=== PATIENT | female | born 1950 | race Caucasian/White ===

== ENCOUNTER 2017-07-02 11:52 | Emergency (ER) | payer OTHER, MEDICARE ==
[2017-07-02 12:13] VITALS: BP 141/88; PULSE 84; RESP 18; TEMP 98.1; O2SAT 94
--- NOTE | 2017-07-02 12:46 | EDPHY ---
H & P Time Seen by Provider: 07/02/17 12:27 HPI/ROS: HPI Trip and fall with facial injuries. 67-year-old female by private vehicle with her . 2 days ago this patient was working in her garden. She was using a garden hose to water her plants. She tripped over the hose and landed on her face. She sustained a contusion and abrasion to her nasal bridge as well as her mid upper lip. Her daughter's is a chief communications officer and looked at the patient and told her that she needed to come to the emergency department to be evaluated. There was no loss of consciousness associated with the event. She has had no significant headache. She denies any nausea or vomiting. No confusion. She complains of facial pain only to her nasal bridge mostly and some to her upper lip. ROS: Constitutional: No fever, no chills. No weakness. Eyes: No discharge. No changes in vision. ENT: No sore throat. No nasal congestion or rhinorrhea. Respiratory: No cough. No shortness of breath. Cardiac: No chest pain, no palpitations. Gastrointestinal: No abdominal pain, no vomiting, no diarrhea. Genitourinary: No hematuria. No dysuria or increased frequency with urination. Musculoskeletal: No back pain. No neck pain. No myalgias or arthralgias. Skin: No rashes. Facial abrasions as noted. Neurological: No headache. No focal weakness or altered sensation. Past medical history: Anxiety, situational depression, asthma, breast cancer. Social history: Nonsmoker. No alcohol. Here with her . Physical Exam: General Appearance: Alert, no distress. This patient is responding to questions appropriately and in full sentences. This patient appears well- hydrated and well-nourished. Head: Normocephalic atraumatic except noted under facial exam. Face: Facial bones are stable on palpation. She has a contusion involving her nasal bridge. The bony aspects of the nasal bridge are stable on palpation without crepitus, deformity or movement. She has a superficial abrasion over the mid nasal bridge. There is no associated erythema, warmth. She has a superficial abrasion over the mid upper lip and without significant swelling or edema. There is no associated erythema or warmth. Eyes: Pupils equal and round and reactive to light, no pallor or injection. No lid erythema or edema. ENT, Mouth: Mucous membranes moist. Dentition is intact. No malocclusion of the jaw. No tongue lacerations or abrasions. Pharynx is clear. The bilateral nasal canals are clear. No septal hematoma. There is no movement of the maxilla with traction on her hard palate. Neurological: Motor sensory function is intact. Cranial nerves are normal. Cerebellar function intact. Gait is normal. Skin: Warm and dry, no rashes. No lacerations, abrasions as noted above. Musculoskeletal: Neck is supple and nontender. The trachea is midline. No midline cervical, thoracic, lumbar or sacral tenderness on palpation. No flank tenderness on palpation. Extremities are symmetrical, full range of motion. All joints in the bilateral upper and bilateral lower extremities range without pain or impingement. No tenderness on palpation of the long bones in the bilateral upper and bilateral lower extremities. Psychiatric: No agitation. No depression. Database: EKG: Imaging: Procedures: Emergency department course: This event happened 2 days ago. No significant findings on neurologic exam. There is nothing on exam to suggest a traumatic brain injury or cervical spine injury. I do not feel that emergent advanced imaging is required at this time. Facial fracture is unlikely. She feels comfortable going home with her . I discussed ibuprofen dosing. I discussed application of bacitracin ointment to her facial abrasions. All of her questions were answered. Return to emergency department precautions and follow-up were thoroughly reviewed with her. She was discharged in good condition. Differential Diagnosis: The differential diagnosis on this patient includes but is not limited to nasal contusion, facial contusion, facial abrasions, mechanical fall. Facial fracture , traumatic brain injury, skull fracture, cervical spine injury, other significant traumatic injury unlikely. This represents a partial list of diagnoses considered. These considerations are based on history, physical exam , past history, reassessment and diagnostic testing. Smoking Status: Never smoked Constitutional: Initial Vital Signs Temperature (C) 36.7 C 07/02/17 12:10 Heart Rate 84 07/02/17 12:10 Respiratory Rate 18 07/02/17 12:10 Blood Pressure 141/88 H 07/02/17 12:10 O2 Sat (%) 94 07/02/17 12:10 O2 Delivery Mode Room Air Allergies/Adverse Reactions: aspirin Allergy (Verified 07/02/17 12:10) body got puffy - "anaphylaxis" Opioids - Morphine Analogues Allergy (Verified 07/02/17 12:10) prochlorperazine edisylate [From Compazine] Allergy (Verified 07/02/17 12:10) muscle contraction in face prochlorperazine maleate [From Compazine] Allergy (Verified 07/02/17 12:10) muscle contraction in face Home Medications: Medication Instructions Recorded Albuterol 07/02/17 Hydroxyzine HCl 07/02/17 Montelukast Sodium 07/02/17 Prednisone 07/02/17 Sertraline HCl 07/02/17 Temazepam 07/02/17 Departure - Departure Disposition: Home, Routine, Self-Care Clinical Impression: Facial contusion, Nasal contusion, Facial abrasion Condition: Good Instructions: Abrasion (ED), Nasal Contusion (ED) Additional Instructions: Read and follow provided instructions. Follow-up with your primary care physician in 1-2 days for re-evaluation as needed. Apply bacitracin ointment to facial abrasions 3 times daily. Ibuprofen dosin mg every 6 hours with meals for the next 3 days only. Take only as needed for pain Return to the emergency department for worsening pain, headache, vomiting, confusion or other serious concerns.
== END 2017-07-02 12:55 | disposition home or self-care (01) ==
LOC: CED 11:52
DX: S00.33XA Contusion of nose, initial encounter (principal); S00.81XA Abrasion of other part of head, initial encounter; J45.909 Unspecified asthma, uncomplicated; S00.83XA Contusion of other part of head, initial encounter; Z85.3 Personal history of malignant neoplasm of breast; W01.0XXA Fall on same level from slipping, tripping and stumbling without subsequent striking against object, initial encounter; Y92.007 Garden or yard of unspecified non-institutional (private) residence as the place of occurrence of the external cause; Y99.8 Other external cause status; Y93.H2 Activity, gardening and landscaping